=== PATIENT | female | born 1990 | race Caucasian/White ===

== ENCOUNTER → 2017-05-23 13:43 | Outpatient (CLI) | payer BC, SELFPAY ==
[2017-05-23 15:57] LABS: Group B Strep DNA By PCR Negative (Negative); Internal Control PASS; Probe Check PASS; Specimen Processing Control PASS
== END ==
PROVIDERS: Visit Provider Obstetrics & Gynecology
DX: Z36.85 Encounter for antenatal screening for Streptococcus B (principal)
CPT/HCPCS: 87081; 87653

== ENCOUNTER 2017-06-11 17:20 | Outpatient (CLI) | payer BC, SELFPAY ==
[2017-06-11 17:34] VITALS: BMI 30.2
--- NOTE | 2017-06-12 08:19 | OB.TRI.NOTE ---
History of Present Illness Date of Service: 06/11/17 Was patient seen by the physician?: Yes Reason For Visit: DECREASED MOVEMENT Date of Service: 06/11/17 Final THEODORA: 06/24/17 Final THEODORA Source: US <20 weeks Gestational age: 38 Weeks and 2 Days History of Present Illness: Complaints of fatigue, light headedness and decreased movement with some irregular contractions. Home Medications Medication Instructions Recorded Vit No.124/Iron/FA 1 each PO DAILY 06/06/15 [ Vitamin Tablet] Acetaminophen [Tylenol Extra 500 mg PO Q4H PRN PRN 06/11/17 Strength] Heparin 5 Unit/5 ml (1/ml) Syr BID 06/11/17 Heparin Sodium,Porcine/Pf [Heparin 1 unit IV 06/11/17 5 Unit/5 ml (1/ml) Syr] Allergies No Known Allergies Allergy (Verified 06/11/16 02:29) Physical Exam General: Alert, Oriented x3, Cooperative, No apparent distress Cardiovascular: Regular rate, Regular Rhythm Lungs: Clear to auscultation, Normal air movement Abdomen: Soft, Non Tender, Non-Distended, Gravid, Appropriate for Gestational Age Extremities:: No edema Estimated gestational size: Appropriate for gestational size Presentation: Cephalic Cervix Dilation (cm): 4 NST - FHR Rate Baby A Baseline: 130s Variability:: Moderate Accelerations:: 15 x 15 Decelerations:: None NST Reactive:: Yes, Appropriate for gestational age FHR Category:: Category I Uterine Activity:: rare Impression/Plan 38w2d ega with decreased movement. NST reassuring and feels movement here. Discussed resuming heparin until day before induction of labor. Will schedule induction after 39 weeks so can plan discontinuation of heparin. Signs and symptoms of labor reviewed. If feels may be going into labor will skip next heparin dose.
== END 2017-06-11 18:00 | disposition home or self-care (01) ==
LOC: WPOUT 17:21 → WP 17:21
PROVIDERS: Family Provider Family Medicine; PCP Family Medicine; Visit Provider Obstetrics & Gynecology
DX: O36.8130 Decreased fetal movements, third trimester, not applicable or unspecified (principal); Z3A.38 38 weeks gestation of pregnancy
CPT/HCPCS: 59025; 59050; 99218; G0378

== ENCOUNTER 2017-06-14 21:55 | Outpatient (CLI) | payer BC, SELFPAY ==
[2017-06-14 22:04] VITALS: BMI 30.9
[2017-06-15 00:55] VITALS: RESP 18
--- NOTE | 2017-06-15 08:15 | OB.TRI.NOTE ---
History of Present Illness Date of Service: 06/14/17 Was patient seen by the physician?: No Reason For Visit: R/O LABOR Date of Service: 06/14/17 Final THEODORA: 06/24/17 Final THEODORA Source: US <20 weeks Gestational age: 38 Weeks and 5 Days History of Present Illness: Complaints of contractions. 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 No signs of SROm. Home Medications Medication Instructions Recorded Vit No.124/Iron/FA 1 each PO DAILY 06/06/15 [ Vitamin Tablet] Heparin 5 Unit/5 ml (1/ml) Syr BID 06/11/17 Heparin Sodium,Porcine/Pf [Heparin 1 unit IV 06/11/17 5 Unit/5 ml (1/ml) Syr] RX: Evening [place] Oil 500 mg PO DAILY 06/14/17 Allergies No Known Allergies Allergy (Verified 06/14/17 22:04) Physical Exam Vitals: Vital Signs Resp 18 06/15/17 00:55 General: Alert, Oriented x3, Cooperative, No apparent distress Cardiovascular: Regular rate, Regular Rhythm Lungs: Clear to auscultation, Normal air movement Abdomen: Soft, Non Tender, Non-Distended, Gravid, Appropriate for Gestational Age Extremities:: No edema Estimated gestational size: Appropriate for gestational size Presentation: Cephalic Cervix Dilation (cm): 3 Station: -2 NST - FHR Rate Baby A Baseline: 130s Variability:: Moderate Accelerations:: 15 x 15 Decelerations:: None NST Reactive:: Yes, Appropriate for gestational age FHR Category:: Category I Uterine Activity:: irregular Impression/Plan Not in active labor. Return if symptoms increase, has SROM, or decreased movement.
== END 2017-06-15 00:55 | disposition home or self-care (01) ==
LOC: WPOUT 22:03 → WP 06-17 08:20
PROVIDERS: Family Provider Family Medicine; PCP Family Medicine; Visit Provider Obstetrics & Gynecology
DX: O47.1 False labor at or after 37 completed weeks of gestation (principal); O26.23 Pregnancy care for patient with recurrent pregnancy loss, third trimester; O99.113 Other diseases of the blood and blood-forming organs and certain disorders involving the immune mechanism complicating pregnancy, third trimester; D68.9 Coagulation defect, unspecified; Z3A.38 38 weeks gestation of pregnancy
CPT/HCPCS: 59025; 59050; 99218; G0378

== ENCOUNTER 2017-06-18 22:10 | Inpatient (IN) | payer BC, SELFPAY ==
[2017-06-18] MEDS: Lactated Ringers 1,000 ML 50 ML IV (22:48)
[2017-06-18 23:44] LABS: Hematocrit 33.6 % (37-47); Hemoglobin 11.1 g/dl (12.0-15.0); Mean Corpuscular Hgb 31.2 pg (27.0-32.0); Mean Corpuscular Volume 94.4 fL (81-99); Mean Platelet Vol. 11.3 fl (6.2-12.0); Platelet Count 165 K/mm3 (150-450); RBC Distribution Width CV 12.6 % (11.6-14.6); Red Blood Count 3.56 M/mm3 (4.2-5.4); White Blood Count 8.3 K/mm3 (4.4-11.0)
[2017-06-19 00:13] LABS: Scan Indicated on CBC? Y/N NO
[2017-06-19 00:24] VITALS: BMI 30.2
[2017-06-19] MEDS: 0.9% Saline Lock 10 ML Syringe IV ×2 (01:15→02:46)
[2017-06-19] MEDS: Ondansetron 4 MG/2 ML Vial IV (02:46)
[2017-06-19] MEDS: Lactated Ringers 1,000 ML 50 ML IV ×3 (04:13→09:15)
[2017-06-19] MEDS: fentaNYL-bupivacaine (epidural) 100 ML BAG EPIDURAL ×2 (05:55→10:06)
[2017-06-19] MEDS: Mag Hydrox/Al Hydrox/Simeth 30 ML UDC PO (07:13)
[2017-06-19] MEDS: Oxytocin 30 units/NS 500 ml 30 UNITS/500 ML IV.SOLN IV (07:33)
--- NOTE | 2017-06-19 07:42 | PCM.PN.OB ---
Subjective: Comfortable with epidural. Objective: Afeb VSS. FHR tracing CAT 1. - Physical Exam General: Alert, Oriented x3, Cooperative, No apparent distress Lungs: Clear to auscultation, Normal air movement Cardiovascular: Regular rate, Regular Rhythm Abdomen: Soft, Non Tender, Non-Distended, Gravid, Appropriate for Gestational Age Extremities: No edema, No Calf Tenderness Skin: No rashes Neurological: Neuro grossly intact Psych/Mental Status: Normal Affect Comment: CE 6cm/80% Weight: 193 lb 5.526 oz Body Mass Index (BMI) 30.2 Intake and Output for Last 24 Hours 06/17/17 06/18/17 06/19/17 23:59 23:59 23:59 Intake Total 1059 / 1059 Output Total 800 / 800 Balance 259 / 259 Laboratory Tests Past 24 Hrs 06/18/17 06/18/17 22:48 22:48 WBC 8.3 RBC 3.56 L Hgb 11.1 L Hct 33.6 L MCV 94.4 MCH 31.2 MCHC 33.0 RDW 12.6 RDW Differential 43.0 Plt Count 165 MPV 11.3 Blood Type O POSITIVE Antibody Screen NEGATIVE Medical Necessity - Tobacco Use Smoking Status: Never smoker Assessment/Plan Progressing in labor after AROM but contractions somewhat spaced. Pitocin started to augment labor. Reassuring FHR tracing.
--- NOTE | 2017-06-19 07:48 | DCINST_ITS ---
Discharge Diet: No Restrictions Discharge Activity: Return to Normal Activity, May Drive, May Shower Return to work on:: 08/18/17 May shower in (days): 0 May resume sexual activity in: 4-6 weeks Call your doctor if your incision/area has: Sudden Increased Bleeding, Increased Pain/ Swelling, Foul Smelling Discharge Call your doctor if you observe: Fever of 101 or Higher, Inability to urinate, Inability to have a bowel movement, Using more than one pad per hour, Shortness of breath, Chest pain, Calf discomfort, Uncontrolled pain Cleanse incision/area with: Soap & Water Additional Instructions: If you experience any of the following, contact your healthcare provider. * Bleeding that soaks a pad every hour for 2 hours * Fever 100.4 or higher * Unrelieved incision or abdominal pain * Swelling, redness, discharge or bleeding from your incision or episiotomy site * Your incision begins to separate * Problems urinating (including inability to urinate or burning while urinating) . * Visual changes * Severe headache * Flu-like symptoms * Pain or redness in one of both of your breasts * Pain, warmth, tenderness or swelling in your legs, especially the calf area * Frequent nausea and vomiting * Symptoms of depression or anxiety If you experience any of the following, call 911 or go to the nearest Emergency Room. * Chest pain * Problems breathing * Seizure activity * Partial or complete paralysis of a body part, slurred speech, weakness or drooping of the face, or a sudden inability to walk or hold your balance Allergies/Adverse Reactions: Allergies No Known Allergies Allergy (Verified 06/19/17 00:21) Medications to take at Discharge Vit No.124/Iron/FA [ Vitamin Tablet] 1 each PO DAILY 06/06/15 Evening [place] Oil 500 mg PO DAILY 06/14/17 Acetaminophen [Tylenol] 500 - 1,000 mg PO Q6H PRN PRN 06/19/17 Aspirin [Aspir-Low] 81 mg PO DAILY #30 tablet. 06/19/17 Enoxaparin Sodium [Lovenox] 40 mg SQ DAILY #30 ml 06/19/17 Ibuprofen [Motrin] 800 mg PO TID PRN PRN #30 tab 06/19/17 The following prescriptions were given: Aspirin [Aspir-Low] 81 mg PO DAILY #30 tablet. Enoxaparin Sodium [Lovenox] 40 mg SQ DAILY #30 ml Ibuprofen [Motrin] 800 mg PO TID PRN PRN #30 tab PRN Reason: Pain or cramping Please Follow Up With: Elle Self MD When: 6 weeks Primary Care Physician: Lit Monson [Primary Care Provider] - Proposed Discharge Date: 06/21/17
[2017-06-19] MEDS: Oxytocin 30 units/NS 500 ml 30 UNITS/500 ML IV.SOLN 334 UNITS IV (11:14)
--- NOTE | 2017-06-19 11:37 | PCM.OB.VAG ---
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 Method of Induction: Pitocin, Amniotomy Medical Reason for Induction: Maternal Medical Condition: list: - inherited coagulopathy Amniotic Membrane Rupture Type: Artificial Rupture of Membrane time: 2344 Amniotic Fluid Description: Clear Final THEODORA: 06/24/17 Final THEODORA Source: US <20 weeks Gestational age: 39 Weeks and 2 Days Date of Procedure: 06/19/17 Pre-Operative Diagnosis: labor Post-Operative Diagnosis: same Surgery/ Procedure Performed: Spontaneous Vaginal Delivery Anesthesiologist: Albert Moreland Type of Anesthesia: Epidural Description of Procedure: progressed to FD then pushed over about 10 minutes to deliver a live female . Delayed cord clamping was employed, There was an active cry at delivery. The nose and mouth were suctioned. The cord was then clamped and cut. Cord bloods were collected. The placenta delivered spontaneously intact with a centrally located 3VC. The uterus contracted well. The upper vagina and cervix were inspected and found to be intact. A small first degree posterior vaginal tear was repaired with 2-0 vicryl. Presentation: Vertex Placental Delivery Description: Spontaneous Placenta Disposition: [facility] Percentage of Placenta Abruption: 0 Cord Vessel Description: 3 Vessels Nuchal Cord Compression: Without compression Cord Entanglement: None Drain: [place] to straight drain Estimated Blood Loss: 400cc Infant A gender: Female (1 minute): 8 (5 minute): 9 Episiotomy Description: None Laceration: Midline, Vaginal Extension/lac, 1st degree Medications given after delivery: IV Pitocin Complications: None
[2017-06-19] MEDS: Oxytocin 30 units/NS 500 ml 30 UNITS/500 ML IV.SOLN 167 UNITS IV (11:45)
[2017-06-19 14:05] VITALS: BP 99/61; PULSE 81; RESP 16; TEMP 36.7
[2017-06-19] MEDS: Ibuprofen 600 MG Tablet PO (14:12)
[2017-06-19 15:40] VITALS: BP 107/57; PULSE 94; RESP 16; TEMP 36.6; O2SAT 97
[2017-06-19] MEDS: Acetaminophen 500 MG Tablet 1000 MG PO (18:47)
[2017-06-19] MEDS: Enoxaparin 40 MG/0.4 ML Syringe SC (18:49)
[2017-06-19] MEDS: Ondansetron 8 MG Tablet PO (18:52)
[2017-06-19 20:00] VITALS: BP 109/64; PULSE 92; RESP 17; TEMP 37.3; O2SAT 98
[2017-06-19] MEDS: oxyCODONE 5 MG Tablet PO (21:35)
[2017-06-20] VITALS: PULSE 90; RESP 17
[2017-06-20] MEDS: oxyCODONE 5 MG Tablet PO ×4 (02:21→19:54)
[2017-06-20] MEDS: Ibuprofen 600 MG Tablet PO ×2 (02:22→21:15)
[2017-06-20 05:17] LABS: Hematocrit 28.8 % (37-47); Hemoglobin 9.5 g/dl (12.0-15.0); Mean Corpuscular Hgb 31.8 pg (27.0-32.0); Mean Corpuscular Volume 96.3 fL (81-99); Platelet Count 144 K/mm3 (150-450); RBC Distribution Width CV 12.4 % (11.6-14.6); RBC Distribution Width SD 41.9 fl (35.1-43.9); Red Blood Count 2.99 M/mm3 (4.2-5.4); White Blood Count 10.3 K/mm3 (4.4-11.0)
[2017-06-20 05:33] LABS: Scan Indicated on CBC? Y/N NO
[2017-06-20 08:00] VITALS: BP 108/58; PULSE 80; RESP 20; TEMP 36.7
--- NOTE | 2017-06-20 08:08 | PCM.PN.OB ---
Subjective: PPD#1 Doing well. Breast feeding and states much more cramping (second baby) she is taking OxyIR for this also. 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.) - Physical Exam General: Alert, Oriented x3, Cooperative, No apparent distress HEENT: Atraumatic Abdomen: Soft - Fundus firm NT at inferior to umbilicus Psych/Mental Status: Normal Affect Vital Signs Temp Pulse Resp BP Pulse Ox 99.2 F H 90 17 109/64 98 06/19/17 20:00 06/20/17 00:00 06/20/17 00:00 06/19/17 20:00 06/19/17 20:00 Oxygen Delivery Method Room Air Weight: 87.7 kg Body Mass Index (BMI) 30.2 Intake and Output for Last 24 Hours 06/18/17 06/19/17 06/20/17 23:59 23:59 23:59 Intake Total 2050 / 2050 Output Total 2650 / 2650 Balance -599 / -599 Laboratory Tests Past 24 Hrs 06/20/17 Unknown WBC 10.3 RBC 2.99 L Hgb 9.5 L Hct 28.8 L MCV 96.3 MCH 31.8 MCHC 33.0 RDW 12.4 RDW Differential 41.9 Plt Count 144 L MPV 11.0 Medical Necessity - Tobacco Use Smoking Status: Never smoker Assessment/Plan PPD#1 vaginal delivery Doing well. Continue care with planned dischg home on 06/21/17
--- NOTE | 2017-06-20 08:11 | PN.OBGYN_ITS ---
Subjective: PPD#1 Doing well. Breast feeding and states much more cramping (second baby) she is taking OxyIR for this also. 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.) - Physical Exam General: Alert, Oriented x3, Cooperative, No apparent distress HEENT: Atraumatic Abdomen: Soft - Fundus firm NT at inferior to umbilicus Psych/Mental Status: Normal Affect Vital Signs Temp Pulse Resp BP Pulse Ox 99.2 F H 90 17 109/64 98 06/19/17 20:00 06/20/17 00:00 06/20/17 00:00 06/19/17 20:00 06/19/17 20:00 Oxygen Delivery Method Room Air Weight: 87.7 kg Body Mass Index (BMI) 30.2 Intake and Output for Last 24 Hours 06/18/17 06/19/17 06/20/17 23:59 23:59 23:59 Intake Total 2050 / 2050 Output Total 2650 / 2650 Balance -599 / -599 Laboratory Tests Past 24 Hrs 06/20/17 Unknown WBC 10.3 RBC 2.99 L Hgb 9.5 L Hct 28.8 L MCV 96.3 MCH 31.8 MCHC 33.0 RDW 12.4 RDW Differential 41.9 Plt Count 144 L MPV 11.0 Medical Necessity - Tobacco Use Smoking Status: Never smoker Assessment/Plan PPD#1 vaginal delivery Doing well. Continue care with planned dischg home on 06/21/17
[2017-06-20] MEDS: Senna/Docusate Sodium 1 Tablet PO (09:19)
[2017-06-20] MEDS: Enoxaparin 40 MG/0.4 ML Syringe SC (09:19)
[2017-06-20] MEDS: Prenatal Vits Tablet 1 TABLET PO (09:19)
[2017-06-20 14:00] VITALS: BP 113/56; PULSE 86; RESP 18; TEMP 37
[2017-06-20 19:56] VITALS: BP 109/55; PULSE 77; RESP 16; TEMP 36.5; O2SAT 98
[2017-06-21] MEDS: oxyCODONE 5 MG Tablet PO ×2 (00:08→10:29)
[2017-06-21 02:00] VITALS: BP 101/63; PULSE 83; RESP 15; TEMP 37.1; O2SAT 99
[2017-06-21] MEDS: Ibuprofen 600 MG Tablet PO ×2 (04:40→13:46)
[2017-06-21 08:40] VITALS: BP 107/70; PULSE 69; RESP 16; TEMP 36.9; O2SAT 98
--- NOTE | 2017-06-21 09:54 | PCM.PN.OB ---
Subjective: PPD#2 Vaginal delivery Doing well. States milk not in, but plans to pump at home to see what she gets. relates some pelvic floor relaxation and had to have physical therapy for pelvic floor exercises after last /delivery. States very active and runs / walks a lot. - Physical Exam General: Alert, Oriented x3, Cooperative, No apparent distress HEENT: Atraumatic Neurological: Cranial nerves II-XII grossly intact Psych/Mental Status: Normal Affect Vital Signs Temp Pulse Resp BP Pulse Ox 98.4 F 69 16 107/70 98 06/21/17 08:40 06/21/17 08:40 06/21/17 08:40 06/21/17 08:40 06/21/17 08:40 Oxygen Delivery Method Room Air Weight: 87.7 kg Body Mass Index (BMI) 30.2 Intake and Output for Last 24 Hours 06/19/17 06/20/17 06/21/17 23:59 23:59 23:59 Intake Total 2050 / 2050 Output Total 2650 / 2650 Balance -599 / -599 Medical Necessity - Tobacco Use Smoking Status: Never smoker Assessment/Plan PPD#2 vaginal delivery Doing well. Dischg home today. RTO for 6 wk pp check as scheduled. Plans pelvic floor exercises and if continued prolapse a problem , states she will consider surgical repair.
[2017-06-21] MEDS: Prenatal Vits Tablet 1 TABLET PO (10:29)
[2017-06-21] MEDS: Senna/Docusate Sodium 1 Tablet PO (10:29)
[2017-06-21] MEDS: Enoxaparin 40 MG/0.4 ML Syringe SC (10:30)
[2017-06-21 13:29] VITALS: BP 116/66; PULSE 68; RESP 18; TEMP 36.5; O2SAT 98
== END 2017-06-21 15:10 | disposition home or self-care (01) | DRG 775 ==
PROVIDERS: Admitting Provider Obstetrics & Gynecology; Family Provider Family Medicine; PCP Family Medicine; Visit Provider Obstetrics & Gynecology
DX: O99.12 Other diseases of the blood and blood-forming organs and certain disorders involving the immune mechanism complicating childbirth (principal); D68.2 Hereditary deficiency of other clotting factors; O26.23 Pregnancy care for patient with recurrent pregnancy loss, third trimester; O70.0 First degree perineal laceration during delivery; O99.513 Diseases of the respiratory system complicating pregnancy, third trimester; J45.909 Unspecified asthma, uncomplicated; O34.83 Maternal care for other abnormalities of pelvic organs, third trimester; N81.89 Other female genital prolapse; Z3A.39 39 weeks gestation of pregnancy; Z37.0 Single live birth
CPT/HCPCS: 59025; 59050; 85027; 86850; 86900; 99218; J7120; A4216; G0378; J2405

== ENCOUNTER → 2017-07-13 14:47 | Outpatient (CLI) | payer BC, SELFPAY ==
[2017-07-13 14:48] LABS: Bacteria 0 SEEN /hpf (None Seen); Mucous, Urine 0 SEEN /hpf (<or=2+); Red Blood Cells-Urine 0 SEEN /hpf (0-5); Squamous Epithelial Cells - UA 0 SEEN /hpf (5-10)
[2017-07-13 14:51] LABS: Color, Urine Amber (Yellow); Glucose, Dipstick Normal (Normal); Ketone-Dipstick Negative (Negative); Leukocyte Esterase-Dipstick 500 /ul (Negative); Nitrite-Dipstick Negative (Negative); Occult Blood-Urine 250 /ul (Negative); Protein-Dipstick 30 mg/dl (Negative); Urine Bilirubin Dipstick Negative (Negative); Urine Clarity Cloudy (Clear); Urine Urobilinogen Normal (Normal)
[2017-07-13 14:58] LABS: White Blood Cells >100 SEEN /hpf (0-5)
== END ==
PROVIDERS: Family Provider Family Medicine; PCP Family Medicine; Visit Provider Physician Assistant
DX: R30.0 Dysuria (principal)
CPT/HCPCS: 81001; 87086; 87088; 87186

== ENCOUNTER 2018-02-24 13:04 | Emergency (ER) | payer BC, SELFPAY ==
[2018-02-24 13:05] VITALS: BP 147/93; PULSE 85; RESP 14; TEMP 36.5; O2SAT 100; BMI 27.3
--- NOTE | 2018-02-24 13:37 | EKG12_ITS ---
Test Reason : CP Blood Pressure : / mmHG Vent. Rate : 080 BPM Atrial Rate : 080 BPM P-R Int : 156 ms QRS Dur : 086 ms QT Int : 384 ms P-R-T Axes : 051 075 059 degrees QTc Int : 442 ms Normal sinus rhythm with sinus arrhythmia Normal ECG Confirmed by CAMILO GOMES, BLUE ([id number]), editorial specialist WENDY ROCHE ([id number]) on 02/27/2018 2:25:40 PM Referred By: YNES Confirmed By:BLUE PAGE MD
--- NOTE | 2018-02-24 13:40 | RAD_ITS ---
STUDY: X-RAY CHEST REASON FOR EXAM: Female, 28 years old. Chest pain. TECHNIQUE: Single AP portable view of the chest. COMPARISON: None. FINDINGS: EKG electrodes are seen. The lungs are clear and expanded. There is no demonstrated pleural abnormality. Normal size heart. Normal mediastinum and nadine. Normal visualized pulmonary arteries. Normal visualized aortic arch and descending thoracic aorta. Normal visualized thoracic spine. Normal visualized ribs, clavicles, and shoulders. There is no demonstrated abnormality of the visualized soft tissue structures of the upper abdomen. RAD/Chest 1 View (Portable) IMPRESSION: Normal x-ray examination of the chest. Electronically Signed: Carlito Vidal MD at 14:00 EST Tel [phone], Service support ,
[2018-02-24 13:41] VITALS: O2SAT 99
[2018-02-24] MEDS: 0.9% Normal Saline 1,000 ML 150 ML IV (13:50)
[2018-02-24 14:02] LABS: D-Dimer Quantitative (DVT/PE) 0.44 FEU/ug/m (0.27-0.49)
[2018-02-24 14:03] LABS: Erythrocyte Sedimentation Rate 15 mm/hr (0-20)
[2018-02-24 14:06] LABS: Absolute Lymphocyte Count 2.04 X10^3/ul (0.83-4.51); Absolute Neutrophil Count 3.2 X10^3/uL (2.0-7.7); Basophil# 0.03 X10^3/uL; Basophil% 0.5 % (0-1); Eosinophil# 0.08 X10^3/uL; Eosinophils% 1.3 % (0-5); Hematocrit 43.7 % (37-47); Hemoglobin 14.7 g/dl (12.0-15.0); Lymphocyte # 2.04 X10^3/ul (4.0); Lymphocyte % 34.2 % (19-41); Mean Corp Hgb Conc 33.6 g/gl (32-36); Mean Corpuscular Hgb 30.5 pg (27.0-32.0); Mean Corpuscular Volume 90.7 fL (81-99); Mean Platelet Vol. 10.6 fl (6.2-12.0); Monocyte# 0.59 X10^3/uL; Monocyte% 9.9 % (0-10); Neutrophil # 3.23 X10^3/uL (2.7-7.7); Neutrophil % 54.1 % (47-70); POSITIVE COUNT NO; POSITIVE DIFFERENTIAL NO; POSITIVE MORPHOLOGY NO; Platelet Count 291 K/mm3 (150-450); RBC Distribution Width CV 12.5 % (11.6-14.6); RBC Distribution Width SD 41.3 fl (35.1-43.9); Red Blood Count 4.82 M/mm3 (4.2-5.4)
[2018-02-24 14:08] LABS: Anion Gap 8 (5-15); BUN 11 mg/dL (7-18); BUN/Creat Ratio 12.2 RATIO (10-20); Calcium,Total 9.8 mg/dL (8.5-10.1); Chloride 106 mmol/L (98-107); EST Glomerular Filtration Rate 79 mL/min (>60); Est Glom Filt Rate - Afr Amer 96 mL/min (>60); Glucose 81 mg/dL (74-106); Potassium 3.8 mmol/L (3.5-5.1); Sodium Level 140 mmol/L (136-145)
[2018-02-24 14:50] VITALS: BP 146/90; PULSE 67; RESP 14; O2SAT 99
--- NOTE | 2018-02-24 14:50 | ED.VISSUMM ---
- ER Visit Summary Date of Service: 02/24/18 Chief Complaint: [Chest pain] History of Present Illness: The patient is a 28 F [presents to the emergency department complaint of not feeling well today. Patient states that she started feeling somewhat lightheaded and nauseated yesterday and asked her to continue today. Patient subsequently developed some chest tightness. Patient states that she thinks the pain is worse when laying flat and seems to improve a little bit with leaning forward. Patient has had history of pericarditis years ago and it somewhat feels like that. Patient denies any chest trauma. There is no family history of heart disease. Patient's not had recent travel or surgery. She has not had fever or cough. Patient states that she took an antacid and it did not help her pain any. 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 Patient is not sure if discontinuing the Reglan is triggered the symptoms. Patient is not sure if she is having an anxiety.] Physical Examination: [HEENT-PERRLA, EOMI. Cranial nerves II through XII grossly intact. TMs clear. Mucous membranes moist. No adenopathy. Cardiovascular-regular rate and rhythm without murmur or ectopy Lungs-clear to auscultation, chest wall stable without crepitus or subcu emphysema Abdomen-normoactive bowel sounds, soft, nontender, no rebound or rigidity, no peritoneal signs. Extremities-intact ?4, normal range of motion, normal pulses, atraumatic] Test Results: [EKG obtained on arrival shows sinus rhythm with a ventricular rate of 80 bpm with no acute ST segment changes and no evidence for pericarditis. CBC with differential showed a white count of 6.0, hemoglobin 14.7, hematocrit 49, platelets 291. Chemistries unremarkable. Troponin was less than 0.015. Sed rate was normal at 15. D-dimer was normal at 0.44. Chest x-ray was normal.] Emergency Department Course and Treatment: [I do not feel patient is having an acute coronary syndrome.] Treatment Plan: [Will be given a prescription for Zofran and as needed Ativan.] Disposition: [Discharged home in stable condition] Impression: [Chest pain-atypical Anxiety] This note was generated with Dragon dictation software. It may contain incorrect words, spelling, and punctuation that were not noted in review of the chart prior to signing ED Disposition - Plan for ED Patient: Chief Complaint: Chest Pain Referrals: Lit Monson [Primary Care Provider] -
--- NOTE | 2018-02-24 14:54 | ED.DEP ---
ED Disposition - Plan for ED Patient: Chief Complaint: Chest Pain Instructions: ED Chest Pain Atypical Unkn Cause, ED Stress React Prescriptions: Ondansetron [Zofran Odt] 4 mg PO Q8H PRN PRN #10 tab PRN Reason: Nausea Lorazepam [Ativan] 1 mg PO TID PRN #10 tab PRN Reason: Anxiety Referrals: Lit Monson [Primary Care Provider] - 3-5 Days
--- OUTSIDE RECORDS SUMMARY | 2018-04-22 03:19 | XMS RPT_ITS ---
:1990 Author Organization OHIP Support Name Relationship Address Phone HOXWORTH, EH Unavailable [address] + [place] [address] KARMA, LEOLA Unavailable [address] + [place] [address] SELF Unavailable Unavailable Unavailable KARMA, LEOLA Unavailable [address] + [place], [place] [id number] KARMA LEOLA Unavailable [address] Unavailable [place], [place] [phone] NOT GIVEN Unavailable Unavailable Unavailable HOXWORTH, EH Unavailable [address] + [place] [address] KARMA LEOLA Unavailable [address] [phone] [place] [address] SELF Unavailable Unavailable Unavailable HOXWORTH, EH Unavailable [address] + [place] [address] KARMA, LEOLA Unavailable [address] [phone] [place] [address] SELF Unavailable Unavailable Unavailable HOXWORTH, EH Unavailable [address] + [place] [address] KARMA LEOLA Unavailable [address] [phone] [place] [address] SELF Unavailable Unavailable Unavailable HOXWORTH, EH Unavailable [address] + [place] [address] KARMA, LEOLA Unavailable [address] [phone] [place] [address] SELF Unavailable Unavailable Unavailable HOXWORTH, EH Unavailable [address] + [place] [address] KARMA LEOLA Unavailable [address] [phone] [place] [address] SELF Unavailable Unavailable Unavailable HOXWORTH, EH Unavailable [address] + [place] [address] KARMA, LEOLA Unavailable [address] [phone] [place] [address] SELF Unavailable Unavailable Unavailable HOXWORTH, EH Unavailable [address] [phone] [place] [address] KARMA LEOLA Unavailable [address] [phone] [place] [address] SELF Unavailable Unavailable Unavailable HOXWORTH, EH Unavailable [address] [phone] [place] [address] LARS PARADALE Unavailable [address] [phone] [place] [address] SELF Unavailable Unavailable Unavailable Care Team Providers Name Role Phone TEN, STACEY Admitting Unavailable VACCARIELLO, STACEY Attending Unavailable VACCARIELLO, STACEY Primary Care Unavailable VACCARIELLO, STACEY Consulting Unavailable PROVIDER, UNKNOWN Consulting Unavailable PROVIDER, UNKNOWN Consulting Unavailable PROVIDER, UNKNOWN Consulting Unavailable Elle Self Attending Unavailable Vaccariello, Stacey Primary Care Unavailable Aramis, Elle Attending Unavailable Vaccariello, Stacey Primary Care Unavailable Gabriella Browne Attending Unavailable Aramis, Elle Referring Unavailable Vaccariello, Stacey Primary Care Unavailable SealSlick jiménez Admitting Unavailable Seals, Slick Attending Unavailable Seals, Slick Attending Unavailable Vaccariello, Stacey Primary Care Unavailable Seals, Slick Attending Unavailable Vaccariello, Stacey Primary Care Unavailable Alexander Paul Attending Unavailable Vaccariello, Stacey Referring Unavailable Alexander Paul Attending Unavailable Vaccariello, Stacey Primary Care Unavailable Vaccariello, Stacey Primary Care Unavailable Ungur, Remus Attending Unavailable PROBLEMS PROBLEMS DATE TYPE CONDITION / CODE ATTENDING STATUS SOURCE 07/13/2017 Unknown R30.0 - Dysuria / Alexander Paul Active [place] R30.0(ICD-10) [facility] Repository 05/23/2017 Unknown Z36.85 - Encounter Gabriella Browne Active [place] for [facility] screening for Hospital Streptococcus B / Repository Z36.85(ICD-10) 04/28/2017 Unknown Z34.83 - Encounter Yair Self for supervision of [facility] , third Repository trimester / Z34.83(ICD-10) PROCEDURES PROCEDURES No Procedure Records FoundRESULTS RESULTS 12 LEAD ELECTROCARDIOGRAM Observed: 02/27/2018 Status: F Source: [place] 2:25 PM [facility] REPOSITORY [facility] Cardiovascular Services [address] [place] [address] 12 Lead EKG 02/24/18 1304 MR#: [id number] Acct: [id number] Name: KYLE PARADA Rep #: [id number] : 1990 28 From: Avery Abreu MD Attending Dr: Status: DEP ER Ordering Dr: Gabriel Glass DO Date: 02/24/18 Location: ED Sex: F C Admitted: Test Reason : CP Blood Pressure : / mmHG Vent. Rate : 080 BPM Atrial Rate : 080 BPM P-R Int : 156 ms QRS Dur : 086 ms QT Int : 384 ms P-R-T Axes : 051 075 059 degrees QTc Int : 442 ms Normal sinus rhythm with sinus arrhythmia Normal ECG Confirmed by CAMILO GOMES, AVERY ([id number]), industrial editor WENDY ROCHE ([id number]) on 02/27/2018 2:25:40 PM Referred By: YNES Confirmed By:AVERY ABREU MD 02/27/18 1425 Date Avery Abreu MD CC: Stacey Caal MD; Gabriel Glass DO Signed DISCHARGE INSTRUCTION Observed: 02/24/2018 Status: F Source: [place] 2:55 PM [facility] REPOSITORY [facility] Medical Records Department [address] [place] [address] Discharge Instruction 02/24/18 1454 MR#: [id number] Acct: [id number] Name: KYLE PARADA Rep #: [id number] : 1990 28 From: Gabriel Glass DO PCP: Stacey Caal MD Status: REG ER ED Disposition - Plan for ED Patient: Chief Complaint: Chest Pain Instructions: ED Chest Pain Atypical Unkn Cause, ED Stress React Prescriptions: Ondansetron [Zofran Odt] 4 mg PO Q8H PRN PRN #10 tab PRN Reason: Nausea Lorazepam [Ativan] 1 mg PO TID PRN #10 tab PRN Reason: Anxiety Referrals: Stacey Caal [Primary Care Provider] - 3-5 Days What to do if you have Problems For any increased pain, shortness of breath, bleeding, nausea or vomiting, chest pain, or any unexpected problems, contact your Primary Care Provider. Call [facility] ([phone]) or report to the closest Emergency Room. Call 911 if necessary. 02/24/18 1455 <Electronically signed by Gabriel Glass DO> Date Gabriel Glass DO Cosigner Signature (If Indicated): Date CC: Stacey Caal MD EMERGENCY DEPARTMENT Observed: 02/24/2018 Status: F Source: [place] SUMMARY 2:53 PM [facility] REPOSITORY [facility] Medical Records Department [address] [place] [address] Emergency Department Summary 02/24/18 1450 MR#: [id number] Acct: [id number] Name: KARMAKYLE Digoo Rep #: [id number] : 1990 28 From: Gabriel Glass DO PCP: Stacey Caal MD Status: REG ER - ER Visit Summary Date of Service: 02/24/18 Chief Complaint: [Chest pain] History of Present Illness: The patient is a 28 F [presents to the emergency department complaint of not feeling well today. Patient states that she started feeling somewhat lightheaded and nauseated yesterday and asked her to continue today. Patient subsequently developed some chest tightness. Patient states that she thinks the pain is worse when laying flat and seems to improve a little bit with leaning forward. Patient has had history of pericarditis years ago and it somewhat feels like that. Patient denies any chest trauma. There is no family history of heart disease. Patient's not had recent travel or surgery. She has not had fever or cough. Patient states that she took an antacid and it did not help her pain any. 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 Patient is not sure if discontinuing the Reglan is triggered the symptoms. Patient is not sure if she is having an anxiety.] Physical Examination: [HEENT-PERRLA, EOMI. Cranial nerves II through XII grossly intact. TMs clear. Mucous membranes moist. No adenopathy. Cardiovascular-regular rate and rhythm without murmur or ectopy Lungs-clear to auscultation, chest wall stable without crepitus or subcu emphysema Abdomen-normoactive bowel sounds, soft, nontender, no rebound or rigidity, no peritoneal signs. Extremities-intact 4, normal range of motion, normal pulses, atraumatic] Test Results: [EKG obtained on arrival shows sinus rhythm with a ventricular rate of 80 bpm with no acute ST segment changes and no evidence for pericarditis. CBC with differential showed a white count of 6.0, hemoglobin 14.7, hematocrit 49, platelets 291. Chemistries unremarkable. Troponin was less than 0.015. Sed rate was normal at 15. D-dimer was normal at 0.44. Chest x-ray was normal.] Emergency Department Course and Treatment: [I do not feel patient is having an acute coronary syndrome.] Treatment Plan: [Will be given a prescription for Zofran and as needed Ativan.] Disposition: [Discharged home in stable condition] Impression: [Chest pain-atypical Anxiety] This note was generated with [employer] dictation software. It may contain incorrect words, spelling, and punctuation that were not noted in review of the chart prior to signing ED Disposition - Plan for ED Patient: Chief Complaint: Chest Pain Referrals: Stacey Caal [Primary Care Provider] - What to do if you have Problems For any increased pain, shortness of breath, bleeding, nausea or vomiting, chest pain, or any unexpected problems, contact your Primary Care Provider. Call [facility] ([phone]) or report to the closest Emergency Room. Call 911 if necessary. 02/24/18 9013 <Electronically signed by Gabriel Glass DO> Date Gabriel Glass DO Cosigner Signature (If Indicated): Date CC: Satcey Caal MD CHEST 1 VIEW Observed: 02/24/2018 Status: F Source: [place] (PORTABLE) 1:38 PM [facility] REPOSITORY [facility] Imaging Services [address] [place] [address] Chest 1 View (Portable) MR#: [id number] Acct: [id number] Name: KYLE PARADA Rep #: [id number] : 1990 F 28 From: Carlito Vidal MD PCP: Stacey Caal MD Status: REG ER Study: Chest 1 View (Portable) Date of Exam: 02/24/18 Exam# [id number] Ordering Dr: Gabriel Glass DO STUDY: X-RAY CHEST REASON FOR EXAM: Female, 28 years old. Chest pain. TECHNIQUE: Single AP portable view of the chest. COMPARISON: None. FINDINGS: EKG electrodes are seen. The lungs are clear and expanded. There is no demonstrated pleural abnormality. Normal size heart. Normal mediastinum and nadine. Normal visualized pulmonary arteries. Normal visualized aortic arch and descending thoracic aorta. Normal visualized thoracic spine. Normal visualized ribs, clavicles, and shoulders. There is no demonstrated abnormality of the visualized soft tissue structures of the upper abdomen. RAD/Chest 1 View (Portable) IMPRESSION: Normal x-ray examination of the chest. Electronically Signed: Carlito Vidal MD at 14:00 EST Tel [phone], Service support , CC: Stacey Caal MD; Gabriel Glass DO Manufacturing Leader: Signed D-DIMER QUANTITATIVE Collected: 02/24/2018 Status: F Source: [place] (DVT/PE) 1:11 PM [facility] REPOSITORY TYPE CODE TESTS RESULT OUT OF RANGE REFERENCE UNITS LAB L300.8000 0.27-0.49 FEU/ug/m Normal D-DIMER 0.44 QUANT Result Comment: NORMAL D-Dimer level (<0.50) indicates no DVT or PE. Performed By: #### L300.8000 #### [facility] [address] [facility] [place], [address] ERYTHROCYTE SED RATE Collected: 02/24/2018 Status: F Source: [place] 1:11 PM [facility] REPOSITORY TYPE CODE TESTS RESULT OUT OF RANGE REFERENCE UNITS LAB L102.0000 0-20 mm/hr Normal SED RATE 15 Performed By: #### L101.9900, L100.0100 #### [facility] [address] [facility] [facility] [address] [place], [place], [address] CBC W/DIFF, AUTOMATED Collected: 02/24/2018 Status: F Source: [place] 1:11 PM [facility] REPOSITORY TYPE CODE TESTS RESULT OUT OF RANGE REFERENCE UNITS LAB L100.1000 4.4-11.0 K/mm3 Normal WBC 6.0 LAB L100.1200 4.2-5.4 M/mm3 Normal RBC 4.82 LAB L100.1300 12.0-15.0 g/dl Normal HGB 14.7 LAB L100.1400 37-47 % Normal HCT 43.7 LAB L100.1500 81-99 fL Normal MCV 90.7 LAB L100.1600 27.0-32.0 pg Normal MCH 30.5 LAB L100.1700 32-36 g/gl Normal MCHC 33.6 LAB L100.1810 11.6-14.6 % Normal RDW CV 12.5 LAB L100.1820 35.1-43.9 fl Normal RDW SD 41.3 LAB L100.1900 150-450 K/mm3 Normal PLT 291 LAB L100.2000 6.2-12.0 fl Normal MPV 10.6 LAB L100.2100 47-70 % Normal NEUT% 54.1 LAB L100.2200 19-41 % Normal LY% 34.2 LAB L100.2300 0-10 % Normal MONO% 9.9 LAB L100.2400 0-5 % Normal EO% 1.3 LAB L100.2500 0-1 % Normal BASO% 0.5 LAB L100.2550 0.0-0.9 % Normal IM GRAN % 0.000 Result Comment: IG% - Immature Granulocytes (promyelocytes, myelocytes and metamyelocytes) > 1% indicates that a LEFT SHIFT is Present. LAB L100.2620 2.0-7.7 X10 3/uL Normal Absolute Neut 3.2 LAB L100.2720 0.83-4.51 X10 3/ul Normal Absolute Lymph 2.04 Performed By: #### L101.9900, L100.0100 #### [facility] [address] [place], [address] BASIC METABOLIC Collected: 02/24/2018 Status: F Source: [place] PROFILE ([facility]) 1:11 PM [facility] REPOSITORY TYPE CODE TESTS RESULT OUT OF RANGE REFERENCE UNITS LAB L501.0100 74-106 mg/dL Normal GLU 81 Result Comment: Please note revised GLUCOSE reference range effective 2017. LAB L501.1000 7-18 mg/dL Normal BUN 11 LAB L501.1100 0.55-1.02 mg/dL Normal CREAT,SERUM 0.90 Result Comment: The validity of the calculated GFR AND GFRAA in patients over 70 years has not been determined. Clinical correlation is essential. LAB L501.1110 >60 mL/min Normal EST GFR 79 Result Comment: Non- GFR Calc LAB L501.1115 >60 mL/min Normal EST GFR - AA 96 Result Comment: GFR Calc LAB L501.1255 ml/min Normal Estimated CRCL 90.50 LAB L501.1300 10-20 RATIO Normal BUN/CRE 12.2 LAB L501.2200 8.5-10 mg/dL Normal .1 CA 9.8 LAB L501.5300 136-14 mmol/L Normal 5 NA 140 LAB L501.5600 3.5-5. mmol/L Normal 1 K 3.8 LAB L501.5900 98-107 mmol/L Normal CL 106 LAB L501.6100 21.0-3 mmol/L Normal 2.0 CO2 26.0 LAB L501.6200 5-15 Normal GAP 8 Performed By: #### L500.2500, L501.4010 #### [facility] [address] [place], [address] TROPONIN-I Collected: 02/24/2018 Status: F Source: [place] 1:11 PM [facility] REPOSITORY TYPE CODE TESTS RESULT OUT OF RANGE REFERENCE UNITS LAB L501.4010 <0.045 ng/mL Normal < 0.015 TROPONIN-I Result Comment: TROPONIN-I EXPECTED VALUES <0.045 Negative 0.045 - 0.590 Consistent with Cardiac Damage > OR = 0.600 Critical Value Not every elevated troponin is indicative of SC. These values should be used with clinical judgement in examining the patient's clinical picture for diagnosis. To establish a diagnosis of SC versus myocardial injury, there must be a demonstrated rise and/or fall in the troponin values, in addition to ischemic symptoms, EKG changes, new regional wall motion abnormality, and/or angiographical evidence. PLEASE NOTE: REFERENCE RANGES EDITED 17 Performed By: #### L500.2500, L501.4010 #### [facility] [address] [place], [address] CT BRAIN W/WO Observed: 09/10/2017 Status: F Source: [place] LONG CONTRAST 2:31 PM [place] [address] Patient: KYLE PARADA Phone#: : 1990 Age: 27 Gender: F Pt. Type: Out Account: [id number] Location: 05 Ordering: STACEY CAAL Exam Date: 09/10/2017/14:20 Family Phys: Charge Code: [id number] Physician: Kane Order #: [id number] DL Dose#: 115.00 PROCEDURE: CT BRAIN WITH AND WITHOUT COMPARISON: None. INDICATIONS: Confusion TECHNIQUE: After obtaining the patient's consent, CT images were obtained without and with non- ionic intravenous contrast material. All CT scans at this facility use dose modulation, iterative reconstruction, and/or weight based dosing when appropriate to reduce radiation dose to as low as reasonably achievable. IV CONTRAST: Omnipaque 350,60ml TOTAL DOSE: 115.00 CTDIvol(mGy) FINDINGS: CEREBRUM: No edema, hemorrhage, mass, acute infarction, or inappropriate atrophy. CEREBELLUM: No edema, hemorrhage, mass, acute infarction, or inappropriate atrophy. BRAINSTEM: No edema, hemorrhage, mass, acute infarction, or inappropriate atrophy. CSF SPACES: Ventricles, cisterns, and sulci are appropriate for age. No hydrocephalus, subarachnoid hemorrhage, or mass. SKULL: No mass or other significant visible lesion. SINUSES: Limited views demonstrate no significant mucosal thickening or fluid. ORBITS: Limited views are unremarkable. OTHER: No abnormal meningeal or parenchymal enhancement. CONCLUSION: No acute disease. Dictated by: Denice Goins MD on 09/10/2017 at 14:42 Continued Report - Page 2 of 2 Patient: KYLE PARADA Phone#: : 1990 Age: 27 Gender: F Pt. Type: Out Account: [id number] Location: [facility] Ordering: STACEY CAAL Exam Date: 09/10/2017/14:20 Family Phys: Charge Code: [id number] Physician: Kane Order #: [id number] DLP Dose#: 115.00 Approved by: Denice Goins MD on 09/10/2017 at 14:42 URGENT CARE VISIT Observed: 07/13/2017 Status: F Source: [place] REPORT 12:27 PM [facility] REPOSITORY Now [address] [place] [address] OFFICE VISIT Date of Service: 07/13/17 MR#: [id number] Acct: [id number] Name: KYLE PARADA Rep #: [id number] : 1990 Provider: ELIDA Paul Age/Sex: 27/F Location: [facility] Status: Signed Intake Vital Signs07/13/17 Height 5 ft 6 in Intake Visit Reasons: Urinary tract infection Chief Complaint: Burning on urination Is patient in pain?: No Allergies No Known Allergies Allergy (Verified 07/13/17 12:08) Medications nitrofurantoin monohydrate/macrocrystals 100 mg capsule 1 cap PO Q12H 5 Days #10 cap 07/13/17 [Rx Confirmed 07/13/17] PFSH Medical History Gave to child recently (Acute) Incontinence (Acute) Pneumonia (Acute) Rhabdomyolysis (Acute) Surgical History Hx of knee surgery (Acute) Social History Smoking Status: Never smoker alcohol intake: current alcohol intake frequency: a few times a month HPI HPI Chief Complaint: Burning on urination Details: KYLE PARADA, is a 27 F who presents to the office today for dysuria 4 days. She states her urine is cloudy she notices some blood as well which has been present since delivery. The patient has been taking Azo cranberry juice and pushing fluids since her symptoms began. She is 3 weeks . She reports a dull ache in the right flank. ROS Const Constitutional: No chills or fever(s) Eyes Eyes: No change in vision ENT ENT: No ear pain, sore throat, nasal congestion or nasal discharge Resp Respiratory: No cough, chest congestion, shortness of breath or wheezing Cardio Cardiology: No chest pain at rest or chest pain with exertion Gastro GI: No abdominal pain, diarrhea, vomiting or nausea/dyspepsia Genitourinary-Female: Positive for burning urination, side pain, blood in urine and urinary urgency Musc Musculoskeletal: No back pain or abnormal walking Skin Skin: No rash or change in skin color Neuro Neurology: No confusion, abnormal walking or abnormal speech Psych Psychiatric: No confusion Aller/Imm Allergy/Immunologic: No wheezing Exam Const General: healthy appearing, no acute distress Orientation: oriented x3, oriented to person, oriented to place, oriented to time [facility] Head: normocephalic Ears: external ears normal, TM's normal bilaterally, EAC's normal Eyes General: appearance normal, both eyes and all related structures Conjunctivae: conjunctivae normal Sclera: sclerae normal Pupils: PERRL Neck Neck: no lymphadenopathy Thyroid: thyroid normal Chest Chest palpation AND inspection: normal inspection of the chest Resp Effort AND Inspection: normal respiratory effort, no cough, no respiratory distress Auscultation: Bilateral: Clear to Auscultation Cardio Rate: regular rate Rhythm: regular rhythm GI Inspection: normal to inspection Auscultation: normal bowel sounds Palpation: no hepatosplenomegaly, no splenomegaly, no masses General: CVA tenderness (Mild right CVA tenderness as compared to the left) Skin General: no pallor Rashes: no rashes Nails: no clubbing Neuro General: oriented x3, gait normal Extrem General: normal to inspection, no pedal edema, no calf tenderness, normal gait, no edema, no cyanosis, no clubbing, no calf tenderness bilaterally, no pedal edema Psych Mood: congruent mood Affect: normal affect Speech and Movement: speech and movement normal Results BMSUA Office Urine Color Straw Last Edit by Franci Mcclian on 07/13/17 12:14 Office Urine Clarity Cloudy Last Edit by Franci Mcclain on 07/13/17 12:14 Assessment AND Plan 1. Urinary tract infection with hematuria, site unspecified N39.0; R31.9 Plan Detail Other Orders Orders: Other Medications New: nitrofurantoin monohyd/m-cryst 100 mg administer with a meal/food1 cap PO Q12H 5 days ; swallow whole; do not open, crush, dissolve , or chew Additional Comments The patient was informed that the urine dip was positive for leukocytes with a small amount of protein and large amount of blood present. She was instructed to hydrate. take the antibiotic as directed. If symptoms worsen she was instructed to contact her OB or be seen in the emergency department. Coding Level of Care Code Off vis,est,level 3 Diagnoses Urinary tract infection with hematuria, site unspecified N39.0; R31.9 Urinary tract infection type: site unspecified Hematuria presence: with hematuria 07/13/17 1227 <Electronically signed by Alexander MARRERO> Date Alexander MARRERO Cosigner Signature: Date (if applicable) CC: URINALYSIS, COMPLETE Collected: 07/13/2017 Status: F Source: [place] 12:15 PM [facility] REPOSITORY Order Comment: COLOR OF URINE MAY AFFECT DIPSTICK RESULTS. How was Urine Obtained? CLEAN CATCH TYPE CODE TESTS RESULT OUT OF RANGE REFERENCE UNITS LAB L400.3000 Yellow COLOR Normal Hay[place] LAB L400.3050 Clear Normal CLARITY Cloudy LAB L400.3200 Normal mg/dl Normal GLUCOSE, UR Normal LAB L400.3300 Negative mg/dL Normal BILIRUBIN URINE Negative LAB L400.3400 Negative mg/dl Normal KETONE UR Negative LAB L400.3465 1.002-1.030 Normal SP.GR. DIPSTX 1.020 LAB L400.3550 5.0 - 8.0 pH UR Normal 6.0 LAB L400.3600 Negative mg/dl High PROT 30 DIPSTX LAB L400.3700 Normal mg/dl Normal UROBILI Normal LAB L400.3750 Negative Normal NITRITE UR Negative LAB L400.3780 Negative /ul High OCCULT BLOOD-UR 250 LAB L400.3800 Negative /ul High LEUK ESTERASE 500 LAB L400.4050 0-5 /hpf WBC Normal >100 SEEN LAB L400.4100 0-5 /hpf 0 Normal RBC-UA SEEN LAB L400.4150 5-10 /hpf SQUAM 0 Normal EPI SEEN LAB L400.4300 None Seen /hpf 0 Normal BACTERIA SEEN LAB L400.4350 <or=2+ /hpf 0 Normal MUCUS, URINE SEEN Performed By: #### L400.0001 #### [facility] [address] [place], [address] Observed: 07/13/2017 Status: F Source: [place] CULTURE, URINE 12:15 PM [facility] REPOSITORY Urine Culture * This is an amended result. * A prior result that was reported as final has been changed. 07/16/17 0902 by RHETT Previously reported as: FINAL ORGANISM 1: Presumptive E. coli [place] Count >100,000 Presumptive E. coli: REACTION Amoxacillin/Clavulanic Acid $ <=2 S Ampicillin $ 4 S Ampicillin/Sulbactam $ <=2 S Cefazolin $ <=4 S Cefepime $ <=1 S Ceftriaxone $ <=1 S Ciprofloxacin $ <=0.25 S ESBL - Ertapenim $$$ <=0.5 S Gentamicin $ <=1 S Imipenem *NF <=0.25 S Levofloxacin $ <=0.12 S Nitrofurantoin $ <=16 S Piperacillin/Tazobactam $$ <=4 S Tobramycin $ <=1 S Trimethoprim/Sulfametho $ <=20 S (NF) indicates non-formulary drug at [facility]. Approval by Infectious Disease Specialist required before non-formulary drugs may be ordered and/or dispensed. Performed By: #### M100.0650 #### [facility] [address] [place], [address] CBC-COMPLETE BLOOD CNT Collected: 06/20/2017 Status: F Source: [place] NO DIFF 12:00 AM [facility] REPOSITORY Order Comment: Reason for Laboratory Test Day #1 TYPE CODE TESTS RESULT OUT OF RANGE REFERENCE UNITS LAB L100.1000 4.4-11.0 K/mm3 Normal WBC 10.3 LAB L100.1200 4.2-5.4 M/mm3 Low RBC 2.99 LAB L100.1300 12.0-15.0 g/dl Low HGB 9.5 LAB L100.1400 37-47 % Low HCT 28.8 LAB L100.1500 81-99 fL Normal MCV 96.3 LAB L100.1600 27.0-32.0 pg Normal MCH 31.8 LAB L100.1700 32-36 g/gl Normal MCHC 33.0 LAB L100.1810 11.6-14.6 % Normal RDW CV 12.4 LAB L100.1820 35.1-43.9 fl Normal RDW SD 41.9 LAB L100.1900 150-450 K/mm3 Low PLT 144 LAB L100.2000 6.2-12.0 fl Normal MPV 11.0 Performed By: #### L100.0500 #### [facility] [address] [place], [address] OPERATIVE REPORT Observed: 06/19/2017 Status: F Source: [place] 11:42 AM [facility] REPOSITORY 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 Method of Induction: Pitocin, Amniotomy Medical Reason for Induction: Maternal Medical Condition: list: - inherited coagulopathy Amniotic Membrane Rupture Type: Artificial Rupture of Membrane time: 2344 Amniotic Fluid Description: Clear Final THEODORA: 06/24/17 Final THEODORA Source: US <20 weeks Gestational age: 39 Weeks and 2 Days Date of Procedure: 06/19/17 Pre-Operative Diagnosis: labor Post-Operative Diagnosis: same Surgery/ Procedure Performed: Spontaneous Vaginal Delivery Anesthesiologist: Albert Moreland Type of Anesthesia: Epidural Description of Procedure: progressed to FD then pushed over about 10 minutes to deliver a live female . Delayed cord clamping was employed, There was an active cry at delivery. The nose and mouth were suctioned. The cord was then clamped and cut. Cord bloods were collected. The placenta delivered spontaneously intact with a centrally located 3VC. The uterus contracted well. The upper vagina and cervix were inspected and found to be intact. A small first degree posterior vaginal tear was repaired with 2-0 vicryl. Presentation: Vertex Placental Delivery Description: Spontaneous Placenta Disposition: [facility] Percentage of Placenta Abruption: 0 Cord Vessel Description: 3 Vessels Nuchal Cord Compression: Without compression Cord Entanglement: None Drain: Gonzales to straight drain Estimated Blood Loss: 400cc A gender: Female (1 minute): 8 (5 minute): 9 Episiotomy Description: None Laceration: Midline, Vaginal Extension/lac, 1st degree Medications given after delivery: IV Pitocin Complications: None 06/19/17 1142 <Electronically signed by Slick Shine MD> Date Slick Shine MD CC: Slick Shine MD; Stacey Caal; Elle Self MD Signed DISCHARGE INSTRUCTION Observed: 06/19/2017 Status: F Source: [place] 7:48 AM [facility] REPOSITORY [facility] Medical Records Department [address] [place] [address] Instructions for Home/Discharge Instructions 06/19/17 0747 MR#: [id number] Acct: [id number] Name: KYLE PARADA Rep #: [id number] : 1990 27 From: Slick Shine MD PCP: Stacey Caal Status: ADM IN Discharge Diet: No Restrictions Discharge Activity: Return to Normal Activity, May Drive, May Shower Return to work on:: 08/18/17 May shower in (days): 0 May resume sexual activity in: 4-6 weeks Call your doctor if your incision/area has: Sudden Increased Bleeding, Increased Pain/ Swelling, Foul Smelling Discharge Call your doctor if you observe: Fever of 101 or Higher, Inability to urinate, Inability to have a bowel movement, Using more than one pad per hour, Shortness of breath, Chest pain, Calf discomfort, Uncontrolled pain Cleanse incision/area with: Soap AND Water Additional Instructions: If you experience any of the following, contact your healthcare provider. * Bleeding that soaks a pad every hour for 2 hours * Fever 100.4 or higher * Unrelieved incision or abdominal pain * Swelling, redness, discharge or bleeding from your incision or episiotomy site * Your incision begins to separate * Problems urinating (including inability to urinate or burning while urinating). * Visual changes * Severe headache * Flu-like symptoms * Pain or redness in one of both of your breasts * Pain, warmth, tenderness or swelling in your legs, especially the calf area * Frequent nausea and vomiting * Symptoms of depression or anxiety If you experience any of the following, call 911 or go to the nearest Emergency Room. * Chest pain * Problems breathing * Seizure activity * Partial or complete paralysis of a body part, slurred speech, weakness or drooping of the face, or a sudden inability to walk or hold your balance Allergies/Adverse Reactions: Allergies No Known Allergies Allergy (Verified 06/19/17 00:21) Medications to take at Discharge Vit No.124/Iron/FA [ Vitamin Tablet] 1 each PO DAILY 06/06/15 Evening Hays Oil 500 mg PO DAILY 06/14/17 Acetaminophen [Tylenol] 500 - 1,000 mg PO Q6H PRN PRN 06/19/17 Aspirin [Aspir-Low] 81 mg PO DAILY #30 tablet. 06/19/17 Enoxaparin Sodium [Lovenox] 40 mg SQ DAILY #30 ml 06/19/17 Ibuprofen [Motrin] 800 mg PO TID PRN PRN #30 tab 06/19/17 The following prescriptions were given: Aspirin [Aspir-Low] 81 mg PO DAILY #30 tablet. Enoxaparin Sodium [Lovenox] 40 mg SQ DAILY #30 ml Ibuprofen [Motrin] 800 mg PO TID PRN PRN #30 tab PRN Reason: Pain or cramping Please Follow Up With: Elle Self MD When: 6 weeks Primary Care Physician: Stacey Caal [Primary Care Provider] - Proposed Discharge Date: 06/21/17 06/19/17 0748 <Electronically signed by Slick Shine MD> Date Slick Shine MD CC: Stacey Caal CBC-COMPLETE BLOOD CNT Collected: 06/18/2017 Status: F Source: [place] NO DIFF 10:48 PM [facility] REPOSITORY TYPE CODE TESTS RESULT OUT OF RANGE REFERENCE UNITS LAB L100.1000 4.4-11.0 K/mm3 Normal WBC 8.3 LAB L100.1200 4.2-5.4 M/mm3 Low RBC 3.56 LAB L100.1300 12.0-15.0 g/dl Low HGB 11.1 LAB L100.1400 37-47 % Low HCT 33.6 LAB L100.1500 81-99 fL Normal MCV 94.4 LAB L100.1600 27.0-32.0 pg Normal MCH 31.2 LAB L100.1700 32-36 g/gl Normal MCHC 33.0 LAB L100.1810 11.6-14.6 % Normal RDW CV 12.6 LAB L100.1820 35.1-43.9 fl Normal RDW SD 43.0 LAB L100.1900 150-450 K/mm3 Normal PLT 165 LAB L100.2000 6.2-12.0 fl Normal MPV 11.3 Performed By: #### L100.0500 #### [facility] [address] [place], [address] TYPE AND SCREEN Collected: 06/18/2017 Status: F Source: [place] 10:48 PM [facility] REPOSITORY Order Comment: Reason for Type AND Screen/Red Cells: TYPE CODE TESTS RESULT OUT OF RANGE REFERENCE UNITS LAB B10.0800 O Normal BLOOD TYPE GEL POSITIVE LAB B100.4000 Normal Antibody NEGATIVE Screen Performed By: #### B101.7450 #### [facility] [address] [place], [address] GROUP B STREP DNA Collected: 05/23/2017 Status: F Source: [place] BY PCR 11:00 AM [facility] REPOSITORY Order Comment: Source: Vaginal-Rectal TYPE CODE TESTS RESULT OUT OF RANGE REFERENCE UNITS LAB L8200.0100 Negative Normal GBS TEST Negative RESULT Performed By: #### L8200.0000 #### [facility] [address] [place], [address] Observed: 05/23/2017 Status: F Source: [place] CULTURE, GROUP B 12:00 AM [facility] STREPTOCOCCUS REPOSITORY [place] Culture Group B Beta Streptococcus is not isolated. Performed By: #### M100.1800 #### [facility] [address] [place], [address] LIVER PROFILE Collected: 04/17/2017 Status: F Source: [place] 11:42 AM [facility] REPOSITORY Order Comment: Comments: [id number];BILE ACIDS FRACT;FROZ SERUM TYPE CODE TESTS RESULT OUT OF RANGE REFERENCE UNITS LAB L501.1500 6.4-8.2 g/dL Normal T PROT 7.4 LAB L501.1800 3.4-5.0 g/dL Low ALB 3.0 Result Comment: Please note revised Albumin AND Globulin reference range effective 2017. LAB L501.1950 2.2-4.2 g/dL High GLOB 4.4 LAB L501.4100 15-37 U/L Low AST 12 LAB L501.4305 45-117 U/L Normal ALK P 105 LAB L501.4405 12-78 U/L Normal ALT 14 LAB L501.4600 0.20-1.00 mg/dL Normal T BILI 0.80 LAB L501.4700 0.00-0.30 mg/dL Normal D BILI 0.13 Performed By: #### L500.3400 #### [facility] [address] [facility] [place], [address] MISCELLANEOUS LAB Collected: 04/17/2017 Status: F Source: [place] PROCEDURE 11:42 AM [facility] REPOSITORY Order Comment: Comments: [id number];BILE ACIDS FRACT;FROZ SERUM Test(s) Ordered: [id number];BILE ACIDS FRACT;FROZ SERUM TYPE CODE TESTS RESULT OUT OF RANGE REFERENCE UNITS LAB L801.1541 Normal [facility] Result Comment: TEST RESULT LIMITS Bile Acids, Fractionated LCMS Ursodeoxycholic Acids <0.10 umol/L Reference Range: All Ages: <1.9 Cholic Acids 0.30 umol/L Reference Range: All Ages: <2.2 Chenodeoxycholic Acids 0.90 umol/L Reference Range: All Ages: <5.8 Deoxycholic Acids 0.90 umol/L Reference Range: All Ages: <3.3 Total Bile Acids 2.1 umol/L Reference Range: All Ages: <9.2 TESTING PERFORMED AT [facility]. ORIGINAL REPORT ON FILE IN LAB CONTAINS ADDITIONAL TEST SITE INFORMATION. Performed By: #### L801.1541 #### [facility] [address] [place], [address] CBC-COMPLETE BLOOD CNT Collected: 03/28/2017 Status: F Source: [place] NO DIFF 10:41 AM [facility] REPOSITORY TYPE CODE TESTS RESULT OUT OF RANGE REFERENCE UNITS LAB L100.1000 4.4-11.0 K/mm3 Normal WBC 6.8 LAB L100.1200 4.2-5.4 M/mm3 Low RBC 3.36 LAB L100.1300 12.0-15.0 g/dl Low HGB 10.7 LAB L100.1400 37-47 % Low HCT 32.6 LAB L100.1500 81-99 fL Normal MCV 97.0 LAB L100.1600 27.0-32.0 pg Normal MCH 31.8 LAB L100.1700 32-36 g/gl Normal MCHC 32.8 LAB L100.1810 11.6-14.6 % Normal RDW CV 12.9 LAB L100.1820 35.1-43.9 fl High RDW SD 45.0 LAB L100.1900 150-450 K/mm3 Normal PLT 179 LAB L100.2000 6.2-12.0 fl Normal MPV 11.1 Performed By: #### L100.0500 #### [facility] [address] [place], [place], [address] GLUCOSE CHALLENGE GEST Collected: 03/28/2017 Status: F Source: [place] 1H 50G 10:41 AM [facility] REPOSITORY Order Comment: PLEASE ADD TO BLOOD IN LAB. RACK FG4 3 F TYPE CODE TESTS RESULT OUT OF RANGE REFERENCE UNITS LAB L501.0250 70-140 mg/dL Normal GLU GEST 93 50g 1H Performed By: #### L501.0250, L503.6550 #### [facility] [address] [place], [place], [address] FERRITIN Collected: 03/28/2017 Status: F Source: [place] 10:41 AM [facility] REPOSITORY Order Comment: PLEASE ADD TO BLOOD IN LAB. RACK FG4 3 F TYPE CODE TESTS RESULT OUT OF RANGE REFERENCE UNITS LAB L503.6550 8-252 ng/mL Normal FERRITIN 13 Performed By: #### L501.0250, L503.6550 #### [facility] [address] [place], [place], [address] ALLERGIES ALLERGIES DATE TYPE / CODE NAME / CODE REACTION SEVERITY SOURCE 07/13/2017 Drug No Known Unknown [place] Allergy/[id number](S Allergies/F0019 [facility] [place]OM[place]) [address](RXNORM) Hospital Repository Miscellaneous No Known Drug Moderate Amari Pomdanayne Allergy/273684598(S Allergies ([facility]OM[facility]) Modifier) Hospital (Qualifier Repository Value) ENCOUNTERS ENCOUNTERS ADMIT/DISCHARGE ACCOUNT ADMITTING ENCOUNTER LOCATION SOURCE NUMBER CLASS 02/24/2018/ [id number] Emergency [place] 8 9 [facility] ing:ED Repository 09/10/2017/ [id number] VACCARIELLO, Ambulatory Amari Pomerene 8 [facility] Repository 07/13/2017 [id number] Ambulatory [place] 9 [facility] ing:LABSPEC Repository 07/13/2017/ [id number] Ambulatory BMSBuilding:B [place] [address] [facility] Repository 06/18/2017/ [id number] Slick Shine Inpatient [place] 8 7 Encounter [facility] ing:WPRoom: Repository UH406Oqi: 1 06/14/2017/ [id number] Ambulatory [place] 8 0 [facility] ing:WPOUTRoom Repository : [id number] 06/11/2017/ [id number] Ambulatory [place] 8 8 [facility] ing:WPOUT Repository 05/23/2017 [id number] [place]ulatory [place] 1 [facility] ing:LABSPEC Repository 04/17/2017 [id number] [place]ulatory [place] 1 [facility] ing:WOBLAB Repository 03/28/2017 [id number] Ambulatory [place] 8 [facility] ing:WOBLAB Repository PAYERS PAYERS ENCOUNTER GUARANTOR PAYER SUBSCRIBER SOURCE 02/24/2018 KYLE DOMINIQUE [place] [id number] [place] Insurance:[facility], Number: [facility] [address]Eqx: [id number] Repository Date:0382-32-68XK [address] () [address], [place] [address]VH: 02/24/2018 Secondary NOT GIVENUNK [place] Insurance:SELF PAY [facility] Number: Effective Repository Date:2018-02-24 09/10/2017 KYLE Lind Primary LEOLA KENDRICKOB: Amari KENDRICKOB: Insurance:[facility] [id number] [facility], [facility] Number: [place] [id number] , [place] [id number]: Date:Plan Name:B2 () 07/13/2017 LEOLA GIFFORD N Primary LE[place] Insurance:[facility], Number: [facility] [address]Xef: [id number] Repository Date:5737-96-27QP [address] () [place], [place] [address]RE: 07/13/2017 Secondary NOT GIVENUNK [place] Insurance:SELF PAY [facility] Number: Effective Repository Date:2017-07-13 07/13/2017 LEOLA GIFFORD N Primary LEOLA Alanis [place] Insurance:[facility], Number: [facility] [address]Gtl: [id number] Repository Date:7285-67-48ZK [address] () [address], [place] [address]DT: 07/13/2017 Secondary NOT GIVENUNK [place] Insurance:SELF PAY [facility] Number: Effective Repository Date:2017-07-13 06/18/2017 LEOLA RUSSELL08 N Primary LEOLA Alanis [place] Insurance:[facility], Number: [facility] [address]Upp: [id number] Repository Date:6457-26-84DY [address] () [address]HKWNEUFTISHA MOLINA [address]SX: 06/18/2017 Secondary NOT GIVENUNK [place] Insurance:SELF PAY [facility] Number: Effective Repository Date:2017-05-30 06/14/2017 Leola Gifford N Primary LEOLA [place] [facility] [address]Ujb: [id number] Repository Date:5478-64-71WX [address] () [address], [place] [address]YN: 06/14/2017 Secondary NOT GIVENUNK [place] Insurance:SELF PAY [facility] Number: Effective Repository Date:2017-06-14 06/11/2017 Leola Gifford N Primary LEOLA Alfrao Insurance:[facility], Number: [facility] [address]Uqg: [id number] Repository Date:2474-80-78QV [address] () [address], [place] [address]IS: 06/11/2017 Secondary NOT GIVENUNK [place] Insurance:SELF PAY [facility] Number: Effective Repository Date:2017-06-11 05/23/2017 Leola Gifford N Primary LEOLA Alfaro Insurance:[facility], Number: [facility] [address]Lnn: [id number] Repository Date:1541-12-38RX [address] () [address] [address]WC: 05/23/2017 Secondary NOT GIVENUNK [place] Insurance:SELF PAY [facility] Number: Effective Repository Date:2017-05-23 04/17/2017 Leola Gifford N Primary LEOLA [place] [facility] Number[facility] [address]Aix: [id number] Repository Date:1725-57-94QP [address] () [place], [place] [address]LJ: 04/17/2017 Secondary NOT GIVENUNK [place] Insurance:SELF PAY [facility] Number: Effective Repository Date:2017-04-17 03/28/2017 Leola Marier308 N Primary LEOLA Billy MAAUDREYSusan Alanis [place] Insurance:[facility], Number: [facility] [id number]: [id number] Repository Date:8846-60-36YJ [address] () [place], [place] [address]FZ: 03/28/2017 Secondary NOT GIVENUNK [place] Insurance:SELF PAY [facility] Number: Effective Repository Date:2017-03-28
== END 2018-02-24 15:01 | disposition home or self-care (01) ==
LOC: ED 13:58
PROVIDERS: Emergency Provider Emergency Medicine; Family Provider Family Medicine; PCP Family Medicine
DX: R07.89 Other chest pain (principal); F41.9 Anxiety disorder, unspecified; F53.0 Postpartum depression
CPT/HCPCS: 71045; 80048; 84484; 85025; 85379; 85652; 93005; 96360; 99284; J7030; A4216

== ENCOUNTER 2019-06-10 21:04 | Emergency (ER) | payer BC, MEDICAID, SELFPAY ==
[2019-06-10 21:05] VITALS: BP 131/69; PULSE 109; RESP 18; TEMP 36.7; O2SAT 96; BMI 26.3
--- NOTE | 2019-06-10 21:44 | EKG12_ITS ---
Test Reason : CP Blood Pressure : / mmHG Vent. Rate : 112 BPM Atrial Rate : 112 BPM P-R Int : 178 ms QRS Dur : 078 ms QT Int : 322 ms P-R-T Axes : 039 047 007 degrees QTc Int : 439 ms Sinus tachycardia Otherwise normal ECG Confirmed by JANEL GOMES, CASEY ([id number]), health editor ABHIJIT TAVARES ([id number]) on 06/11/2019 1:14:35 PM Referred By: ELLIS Confirmed By:ROMIE ISLAS MD
--- NOTE | 2019-06-10 21:50 | RAD_ITS ---
STUDY: X-RAY CHEST REASON FOR EXAM: Female, 29 years old. SOB WITH FEVER AND COUGH TECHNIQUE: Portable chest COMPARISON: 02/24/2018. FINDINGS: There is no change. There is no demonstrated pleural abnormality. Normal size heart. Normal mediastinum and nadine. Normal visualized pulmonary arteries. Normal visualized aortic arch and descending thoracic aorta. Normal visualized thoracic spine. Normal visualized ribs, clavicles, and shoulders. There is no demonstrated abnormality of the visualized soft tissue structures of the upper abdomen. RAD/Chest 1 View (Portable) IMPRESSION: No acute process, no change from prior Electronically Signed: Trent Wood, at 22:09 EDT Tel , Service support ,
[2019-06-10] MEDS: Ketorolac 15 MG/ML Vial IV (22:14)
[2019-06-10] MEDS: 0.9% Normal Saline 1,000 ML 1000 ML IV (22:15)
[2019-06-10 22:23] VITALS: BP 125/73; PULSE 103; RESP 20; O2SAT 99
[2019-06-10 22:26] LABS: Absolute Lymphocyte Count 0.39 X10^3/uL (0.83-4.51); Absolute Neutrophil Count 6.7 X10^3/uL (2.0-7.7); Basophil# 0.02 X10^3/uL; Basophil% 0.3 % (0-1); Eosinophil# 0.02 X10^3/uL; Eosinophils% 0.3 % (0-5); Hematocrit 40.5 % (37-47); Hemoglobin 13.8 g/dL (12.0-15.0); Lymphocyte # 0.39 X10^3/ul (4.0); Lymphocyte % 5.2 % (19-41); Mean Corp Hgb Conc 34.1 g/dL (32-36); Mean Corpuscular Hgb 30.8 pg (27.0-32.0); Mean Corpuscular Volume 90.4 fL (81-99); Mean Platelet Vol. 10.6 fl (6.2-12.0); Monocyte# 0.32 X10^3/uL; Monocyte% 4.3 % (0-10); NRBC Flagged by Analyzer 0 % (0-5); Neutrophil # 6.66 X10^3/uL (2.7-7.7); Neutrophil % 89.5 % (47-70); POSITIVE DIFFERENTIAL YES; Platelet Count 181 K/mm3 (150-450); RBC Distribution Width SD 43.2 fl (35.1-43.9); Red Blood Count 4.48 M/mm3 (4.2-5.4); White Blood Count 7.4 K/mm3 (4.4-11.0)
[2019-06-10 22:41] LABS: Differential Indicated SCAN CRITERIA MET
[2019-06-10 22:45] LABS: Internal QC Validated? YES +Cl - CLEAR BKGD; Pregnancy, Serum, hCG Quali. NEGATIVE Negative
--- NOTE | 2019-06-10 22:46 | ED.VISSUMM ---
- ER Visit Summary Date of Service: 06/10/19 Chief Complaint: Fatigue fever History of Present Illness: The patient is a [address] Lo. She reports that she has not felt well for 3 days. She started with a sore throat which is now resolved. She reports that she had rhinorrhea and a cough. Those seem to have improved as well. Now she just has generalized weakness. Patient reports he has chest pain that began this afternoon. Is a dull aching pain Zeta 10 organ 7-10 currently. Nothing makes this better or worse. She does feel mildly short of breath. She denies abdominal pain. However she has had nausea and vomited once today. Is also had 5 sets of diarrhea today. No blood in her stools or black tarry stools. No dysuria, frequency, or other complaints. Patient denies any recent travel. She denies any possible exposure to coronavirus. Physical Examination: Vitals: Stable. Afebrile. General: Well-nourished and well-developed. Head: Normocephalic atraumatic. Neck: Supple, no lymphadenopathy. No JVD. Nontender. Cardiovascular: Regular rate and rhythm. No murmurs. Respiratory: No respiratory distress. Clear to auscultation bilaterally. Abdominal: Soft, nontender, nondistended, normal bowel sounds. No guarding, rebound, or peritoneal signs. Back: Nontender. Extremities: Nontender, no edema. Skin: Normal color, no rash. Neurologic: Alert and oriented ?3. Cranial nerves II through XII are intact. Normal strength and sensation. Psych: Normal affect. Test Results: EKG is sinus tach at [address] changes. CBC shows 7 neutrophils 9 lymphocytes 5. Chem-7 is normal. LFTs show total bili 1.8 AST of 12. test negative. Clinical Impression(s) from Imaging Studies Chest X-Ray 06/10/19 21:50 IMPRESSION: No acute process, no change from prior Electronically Signed: Trent Wood, at 22:09 EDT Tel , Service support , Emergency Department Course and Treatment: Patient was given a liter of normal saline. She was given Toradol and Zofran IV. She is resting more comfortably. 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 She is concerned that she will have to be quarantined if she does not have an explanation for her infection. She is already had a negative rapid strep and influenza at urgent care. She had a respiratory panel sent. Treatment Plan: Instructed the patient she will be contacted with the results of the respiratory panel tomorrow. Use symptomatic care otherwise. Push fluids. Use Tylenol and ibuprofen for fever and myalgias. Return to the emergency department for any worsening symptoms. Disposition: To home in improved and stable condition. Impression: 1. Fever, uncertain cause. This note was generated with [employer] dictation software. It may contain incorrect words, spelling, and punctuation that were not noted in review of the chart prior to signing ED Disposition - Plan for ED Patient: Instructions: FEBRILE ILLNESS, Uncertain Cause (Adult) Prescriptions: Ondansetron [Zofran Odt] 4 mg PO Q8H PRN PRN #10 tab PRN Reason: Nausea Prescription Printed Referrals: Lit Monson MD [Primary Care Provider] - 1 Week if not improving
[2019-06-10 22:47] LABS: ALB/GLOB Ratio 1.1 RATIO (0.9-2.4); AST(SGOT) 12 U/L (15-37); Alanine Aminotransfer ALT/SGPT 17 U/L (13-56); Alkaline Phosphatase 77 U/L (45-117); Anion Gap 10 (5-15); BUN 9 mg/dL (7-18); BUN/Creat Ratio 11.7 RATIO (10-20); Calcium,Total 8.5 mg/dL (8.5-10.1); Chloride 107 mmol/L (98-107); Creatinine, Serum 0.77 mg/dL (0.55-1.02); EST Glomerular Filtration Rate 94 mL/min (>60); Est Glom Filt Rate - Afr Amer 114 mL/min (>60); Estimated Creatinine Clearance 104.83 ml/min; Globulin 3.8 g/dL (2.2-4.2); Glucose 81 mg/dL (74-106); Potassium 3.5 mmol/L (3.5-5.1); Protein, Total 7.8 g/dL (6.4-8.2); Sodium Level 138 mmol/L (136-145)
[2019-06-10 23:00] LABS: Anisocytosis RARE; Macrocytosis RARE; Platelet Estimate ADEQUATE (ADEQ); Red Cell Morphology N CHROM NORMAL (NORM C&C)
[2019-06-10 23:35] VITALS: BP 116/68; PULSE 104; RESP 12; O2SAT 97
== END 2019-06-10 23:45 | disposition home or self-care (01) ==
LOC: ED 21:33
PROVIDERS: Emergency Provider Emergency Medicine; PCP Family Medicine
DX: R50.9 Fever, unspecified (principal); R11.2 Nausea with vomiting, unspecified; R53.83 Other fatigue
CPT/HCPCS: 71045; 80053; 84703; 85025; 87633; 93005; 96361; 96374; 96375; 99284; J7030; A4216; J2405